=== PATIENT | female | born 1955 | race Caucasian/White ===

== ENCOUNTER 2017-02-11 15:57 | Outpatient (CLI) | payer BC ==
[2017-02-11 16:24] LABS: CALCIUM 9.2 mg/dL (8.5-10.3); CREATININE 0.7 mg/dL (0.4-1.0); POTASSIUM 4.6 mmol/L (3.5-5.0)
== END 2017-02-11 15:58 | disposition home or self-care (01) ==
LOC: LAB 15:57
PROVIDERS: ATTEND Psychiatry & Neurology Neurology
DX: E87.1 Hypo-osmolality and hyponatremia (principal); F31.89 Other bipolar disorder
CPT/HCPCS: 36415; 80048

== ENCOUNTER 2017-03-23 11:52 | Outpatient (CLI) | payer BC | END 2017-03-23 11:53 | disposition home or self-care (01) | LOC: LAB 11:52 | PROVIDERS: ATTEND Psychiatry & Neurology Neurology | DX: F31.89 Other bipolar disorder (principal) | CPT/HCPCS: 36415; 80164 ==